=== PATIENT | male | born 1945 | race African-American/Black ===

== ENCOUNTER 2017-08-21 18:03 | Emergency (ER) | payer MEDICARE, OTHER ==
--- NOTE | 2017-08-21 18:21 | PHYS DOC ---
Adult General Chief Complaint Chief Complaint: SEIZURE HPI HPI Patient is a 71 year old male who presents to the emergency department for evaluation of seizure. Patient throughout the emergency department by EMS who were called by the patient's . Patient does not remember anything that happened and is unable to provide history specific to events that occurred today. The patient's stated that she noticed the patient had been having convulsive activity shortly prior to arrival. She stated that she was unable to wake the patient during the episode, thus she called EMS. On EMS arrival, they report that the patient was very confused and appeared to be postictal. Upon arrival to the emergency department, the patient is alert and oriented to person and place. Patient denies any complaints at this time. Patient has had history of CVA with residual left-sided weakness. Patient states that he does not feel any worsening weakness at this time. EMS also report patient has history of brain aneurysm that was diagnosed in 1983. The patient had a seizure episode at that time. Patient has had no further seizures since then. Patient not currently on seizure medication. Review of Systems Review of Systems Constitutional: Denies fever or chills [] Eyes: Denies change in visual acuity, redness, or eye pain [] HENT: Denies nasal congestion or sore throat [] Respiratory: Denies cough or shortness of breath [] Cardiovascular: Denies chest pain or edema[] GI: Denies abdominal pain, nausea, vomiting, bloody stools or diarrhea [] : Denies dysuria or hematuria [] Musculoskeletal: Denies back pain or joint pain [] Integument: Denies rash or skin lesions [] Neurologic: Confusion, denies headache, chronic left-sided focal weakness[] Allergies Allergies Allergies Coded Allergies Type Severity Reaction Last Updated Verified No Known Drug Allergies 08/21/17 No Physical Exam Physical Exam Constitutional: Well developed, well nourished, no acute distress, non-toxic appearance. [] HENT: Normocephalic, atraumatic, bilateral external ears normal, oropharynx moist, no oral exudates, nose normal. [] Eyes: PERRLA, EOMI, conjunctiva normal, no discharge. [] Neck: Normal range of motion, no tenderness, supple, no stridor. [] Cardiovascular:Heart rate regular rhythm, no murmur [] Lungs & Thorax: Bilateral breath sounds clear to auscultation [] Abdomen: Bowel sounds normal, soft, no tenderness, no masses, no pulsatile masses. [] Skin: Warm, dry, no erythema, no rash. [] Back: No tenderness, no CVA tenderness. [] Extremities: No tenderness, no cyanosis, no clubbing, ROM intact, 1+ pitting edema in the bilateral lower extremities. [] Neurologic: Alert and to person and place, cranial nerves II through XII grossly intact, 4.5 out of 5 left upper and lower extremity motor strength, 5 out of 5 right upper and lower extremity motor strength, no pronator drift. [] Current Patient Data Vital Signs Vital Signs Date Time Temp Pulse Resp B/P (MAP) Pulse Ox O2 Delivery O2 Flow Rate FiO2 08/21/17 18:06 98.2 61 16 94 Room Air Lab Results Laboratory Tests Test 08/21/17 18:35 08/21/17 18:51 White Blood Count 6.9 x10^3/uL Red Blood Count 4.92 x10^6/uL Hemoglobin 13.9 g/dL Hematocrit 41.6 % Mean Corpuscular Volume 85 fL Mean Corpuscular Hemoglobin 28 pg Mean Corpuscular Hemoglobin Concent 33 g/dL Red Cell Distribution Width 13.7 % Platelet Count 237 x10^3/uL Neutrophils (%) (Auto) 59 % Lymphocytes (%) (Auto) 22 % Monocytes (%) (Auto) 15 % Eosinophils (%) (Auto) 3 % Basophils (%) (Auto) 1 % Neutrophils # (Auto) 4.1 x10^3uL Lymphocytes # (Auto) 1.5 x10^3/uL Monocytes # (Auto) 1.0 x10^3/uL Eosinophils # (Auto) 0.2 x10^3/uL Basophils # (Auto) 0.1 x10^3/uL Sodium Level 142 mmol/L Potassium Level 3.4 mmol/L Chloride Level 103 mmol/L Carbon Dioxide Level 30 mmol/L Anion Gap 9 Blood Urea Nitrogen 16 mg/dL Creatinine 1.2 mg/dL Estimated GFR (Cockcroft-Gault) 72.6 Glucose Level 108 mg/dL Calcium Level 9.0 mg/dL Magnesium Level 2.1 mg/dL Urine Collection Type Unknown Urine Color Yellow Urine Clarity Clear Urine pH 6.5 Urine Specific [place] 1.015 Urine Protein Trace Urine Glucose (UA) Neg mg/dL Urine Ketones (Stick) Trace mg/dL Urine Blood Neg Urine Nitrite Neg Urine Bilirubin Neg Urine Urobilinogen Dipstick 1 mg/dL Urine Leukocyte Esterase Neg Urine RBC Occ /HPF Urine WBC Occ /HPF Urine Squamous Epithelial Cells Occ /LPF Urine Bacteria 0 /HPF Urine Hyaline Casts Few /HPF Urine Mucus Mod /LPF Urine Opiates Screen Neg Urine Methadone Screen Neg Urine Barbiturates Neg Urine Phencyclidine Screen Neg Urine Amphetamine/Methamphetamine Neg Urine Benzodiazepines Screen Neg Urine Cocaine Screen Neg Urine Cannabinoids Screen Neg Urine Ethyl Alcohol Neg Current Medications Medications (Trade) Dose Ordered Sig/Keila Route PRN Reason Start Time Stop Time Status Last Admin Dose Admin Sodium Chloride 500 ml @ 0 mls/hr 1X ONCE IV 08/21/17 18:30 08/21/17 19:30 DC 08/21/17 18:45 Potassium Chloride (Klor-Con) 40 meq 1X ONCE PO 08/21/17 19:45 08/21/17 19:46 EKG EKG Interpreted by me: Heart rate 60, sinus rhythm, normal intervals, normal axis, no acute ST/T-wave abnormalities present[] Radiology/Procedures Radiology/[place] [address] IMAGING REPORT Signed PATIENT: FELICITA RUIZ ACCOUNT: [id number] : 1945 LOCATION: ER AGE: 71 SEX: M EXAM STATUS: REG ER ORD. PHYSICIAN: LIAM JACKSON MD REASON: seizure, history of stroke PROCEDURE: CT HEAD WO CONTRAST PQRS Compliance Statement: One or more of the following individualized dose reduction techniques were utilized for this examination: 1. Automated exposure control 2. Adjustment of the mA and/or kV according to patient size 3. Use of iterative reconstruction technique CT head without contrast 08/21/2017 6:21 PM INDICATION: 08/21/2017 COMPARISON: Seizure. History of stroke. TECHNIQUE: Multiple axial CT images of the head were obtained from skull base through the vertex without intravenous contrast. FINDINGS: Head: Right frontal and temporal craniotomy changes are identified. There is encephalomalacia involving the right posterior frontal lobe, insula, frontal and temporal operculum and temporal pole. Findings are compatible with prior right middle cerebral artery infarct. There is expected dilatation of the body of the right lateral ventricle as well as the right temporal horn. Aneurysm clip is identified in the right middle cranial fossa. There is no acute intracranial hemorrhage. There is no mass, mass effect or midline shift. Posterior fossa is normal in appearance. Visualized portions of the orbits are normal. Paranasal sinuses are well aerated. Mastoid air cells are well aerated. Scalp and calvaria are normal. IMPRESSION: 1. No acute intracranial hemorrhage. 2. 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 Aneurysm clip is identified in the right middle cranial fossa. Electronically signed by: Monico Kilpatrick MD (08/21/2017 6:53 PM) [facility] DICTATED AND SIGNED BY: MONICO KILPATRICK MD DATE: 08/21/171849 CC: LIAM JACKSON MD; PCP,UNKNOWN ~ [] Course & Med Decision Making Course & Med Decision Making Pertinent Labs and Imaging studies reviewed. (See chart for details) The patient was given IV fluids in the emergency department and monitored over 2 hours with no further seizure activity. Patient returned to baseline mental status. Family is present in the room and confirmed the reports from EMS regarding the patient's episode. I spoke with Dr. Wilcox of neurology. He agreed with initiation of Keppra therapy which was given in the emergency department. Advised to continue 500 mg twice a day and advised that the patient call his office tomorrow to schedule an appointment in the next week. Advised return to emergency department for any worsening symptoms. Patient voiced understanding and in agreement with treatment plan. Dragon Disclaimer Dragon Disclaimer This chart was dictated in whole or in part using Voice Recognition software in a busy, high-work load, and often noisy Emergency Department environment. It may contain unintended and wholly unrecognized errors or omissions. Departure Departure: Impression: Primary Impression: Seizure Additional Impression: History of CVA (cerebrovascular accident) Disposition: HOME, SELF-CARE Condition: IMPROVED Referrals: PCP,UNKNOWN (PCP) Patient Instructions: Seizure, Adult Additional Instructions: Call the office of Dr. Wilcox of neurology tomorrow to schedule an appointment in the next week. Follow-up with primary doctor in 2-3 days for reevaluation. Return to the emergency department for any worsening symptoms. Scripts Levetiracetam (KEPPRA) 500 Mg Tablet 1 TAB PO BID, #60 TAB 0 Refills Prov: LAIM JACKSON MD 08/21/17 Problem Qualifiers LIAM JACKSON MD Aug 21, 2017 18:21
[2017-08-21] MEDS ORDERED: IV NORMAL SALINE 500ML 500 ML IV ONE (18:30)
[2017-08-21 18:47] LABS: BASO # 0.1 x10^3/uL (0.0-0.2); BASO % 1 % (0-3); EOS # 0.2 x10^3/uL (0.0-0.7); EOS % 3 % (0-3); HEMATOCRIT 41.6 % (39.0-53.0); HEMOGLOBIN 13.9 g/dL (13.0-17.5); LYMPH # 1.5 x10^3/uL (1.0-4.8); LYMPH % 22 % (24-48); MEAN CORPUSCULAR HEMOGLOBIN 28 pg (25-35); MEAN CORPUSCULAR HGB CONC 33 g/dL (31-37); MEAN CORPUSCULAR VOLUME 85 fL (79-100); MONO % 15 % (0-9); NEUT # 4.1 x10^3uL (1.8-7.7); NEUT % 59 % (31-73); PLATELET COUNT 237 x10^3/uL (140-400); RED BLOOD COUNT 4.92 x10^6/uL (4.30-5.70); RED CELL DISTRIBUTION WIDTH 13.7 % (11.5-14.5); WHITE BLOOD COUNT 6.9 x10^3/uL (4.0-11.0)
[2017-08-21 18:54] LABS: CREATININE 1.2 mg/dL (0.7-1.3); GFR 72.6; MAGNESIUM 2.1 mg/dL (1.8-2.4); POTASSIUM 3.4 mmol/L (3.5-5.1)
--- NOTE | 2017-08-21 18:57 | RAD ---
RS Compliance Statement: One or more of the following individualized dose reduction techniques were utilized for this examination: 1. Automated exposure control 2. Adjustment of the mA and/or kV according to patient size 3. Use of iterative reconstruction technique CT head without contrast 08/21/2017 6:21 PM INDICATION: 08/21/2017 COMPARISON: Seizure. History of stroke. TECHNIQUE: Multiple axial CT images of the head were obtained from skull base through the vertex without intravenous contrast. FINDINGS: Head: Right frontal and temporal craniotomy changes are identified. There is encephalomalacia involving the right posterior frontal lobe, insula, frontal and temporal operculum and temporal pole. Findings are compatible with prior right middle cerebral artery infarct. There is expected dilatation of the body of the right lateral ventricle as well as the right temporal horn. Aneurysm clip is identified in the right middle cranial fossa. There is no acute intracranial hemorrhage. There is no mass, mass effect or midline shift. Posterior fossa is normal in appearance. Visualized portions of the orbits are normal. Paranasal sinuses are well aerated. Mastoid air cells are well aerated. Scalp and calvaria are normal. IMPRESSION: 1. No acute intracranial hemorrhage. 2. 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 Aneurysm clip is identified in the right middle cranial fossa. Electronically signed by: Mame Goss MD (08/21/2017 6:53 PM) [id number]
--- NOTE | 2017-08-21 19:13 | EKG ---
[address] [address] Test Date: 2017-08-21 Test Time: 18:30:16 Pat Name: FELICITA RUIZ Department: Room: Gender: M Pants Closer: HALIMA : 1945 Requested By: LIAM JACKSON Order Number: [id number] Reading MD: Measurements Intervals [place] Rate: 60 P: MA: QRS: 31 QRSD: 88 T: 48 QT: 434 QTc: 438 Interpretive Statements SINUS BRADYCARDIA OTHERWISE NORMAL ECG RI6.01 No previous ECG available for comparison
[2017-08-21 19:17] LABS: BARBITURATES NEG (NEG); BENZODIAZEPINES NEG (NEG); CANNABINOIDS NEG (NEG); COCAINE NEG (NEG); METHADONE NEG (NEG); OPIATES NEG (NEG); PHENCYCLIDINE NEG (NEG)
[2017-08-21 19:20] LABS: AMPHETAMINE/METHAMPHETAMINE NEG (NEG)
[2017-08-21 19:25] LABS: BILIRUBIN,URINE NEG (NEG); CLARITY,URINE CLEAR; COLOR,URINE YELLOW; GLUCOSE,URINE NEG (NEG)
[2017-08-21 19:26] LABS: BACTERIA,URINE 0 /HPF (0-FEW); NITRITE,URINE NEG (NEG); RBC,URINE OCC /HPF (0-2); SQUAMOUS EPITHELIAL CELL,UR OCC /LPF; UROBILINOGEN,URINE 1 mg/dL (0.2 mg/dL); WBC,URINE OCC /HPF (0-4)
[2017-08-21 19:27] LABS: HYALINE CASTS, URINE FEW /HPF
[2017-08-21] MEDS ORDERED: POTASSIUM CHLORIDE 20 MEQ TABLET.ER. PO ONE (19:45)
[2017-08-21] MEDS ORDERED: LEVE500T56 PO (19:49)
[2017-08-21] MEDS ORDERED: levETIRAcetam 500 MG TABLET PO ONE (20:00)
[2017-08-21 20:10] VITALS: BP 142/92
== END 2017-08-21 20:26 | disposition home or self-care (01) ==
LOC: ER 18:03
DX: R56.9 Unspecified convulsions (principal); Z86.73 Personal history of transient ischemic attack (TIA), and cerebral infarction without residual deficits
CPT/HCPCS: 36415; 70450; 80048; 80307; 81001; 83735; 85025; 93005; 96360; 99285; J7040; G0479